=== PATIENT | female | born 1985 | race African-American/Black ===

== ENCOUNTER 2016-12-05 09:34 | Emergency (ER) | payer SELFPAY ==
--- NOTE | 2016-12-05 10:34 | ER Document Report ---
ED Oral Problem - General Chief Complaint: Sore Throat Stated Complaint: THROAT PAIN Notes: Patient is complaining of a sore throat since Friday. She feels that it swollen in the back of her throat, but she can swallow saliva without difficulty , except for pain. Has not had a fever. Has had a cough with some yellow sputum production. No vomiting and no diarrhea. Has not been exposed to anyone with strep. TRAVEL OUTSIDE OF THE [place] IN LAST 30 DAYS: No - Related Data Allergies/Adverse Reactions: No Known Allergies Allergy (Verified 12/05/16 09:39) Past Medical History - Social History Smoking Status: Current Every Day Smoker Chew tobacco use (# tins/day): No Frequency of alcohol use: None Drug Abuse: None Family History: Reviewed & Not Pertinent Patient has suicidal ideation: No Patient has homicidal ideation: No Pulmonary Medical History: Reports: Hx Bronchitis Past Surgical History: Reports: Hx Gynecologic Surgery - AB 2006 Pt had ectopic preg and had surgery and both fallopian tubes remov - Immunizations Hx Diphtheria, Pertussis, Tetanus Vaccination: No - >5 yrs Review of Systems - Review of Systems Notes: REVIEW OF SYSTEMS: CONSTITUTIONAL : Feels she has had a fever. EENT: See history of present illness. CARDIOVASCULAR: Denies chest pain. RESPIRATORY: Has productive cough, chest congestion, but no shortness of breath. GASTROINTESTINAL: Denies abdominal pain or nausea, vomiting, or diarrhea. GENITOURINARY: Denies difficulty or painful urinating, urinary frequency, blood in urine. MUSCULOSKELETAL: Denies back or neck pain. Denies joint pain or swelling. SKIN: Denies rash or skin lesions. NEUROLOGICAL: Denies LOC or altered mental status. Denies headache. Denies sensory loss or motor deficits. ALL OTHER SYSTEMS REVIEWED AND NEGATIVE. Physical Exam - Vital signs Vitals: Temp Pulse Resp BP Pulse Ox 98.1 F 84 18 126/82 H 99 12/05/16 09:41 12/05/16 09:41 12/05/16 09:41 12/05/16 09:41 12/05/16 09:41 Interpretation: Normal - Notes Notes: PHYSICAL EXAMINATION: GENERAL: Well-appearing, in no acute distress. Afebrile. Voice normal. HEAD: Atraumatic, normocephalic. ENT: oropharynx erythematous with enlargement of the tonsils bilaterally, left larger than right. No a shoe dates seen, however. Moist mucous membranes. No asymmetry of the peritonsillar spaces and soft palate and nothing to suggest a peritonsillar abscess. Tender adenopathy in the submandibular region bilaterally. NECK: Normal range of motion, supple. LUNGS: Breath sounds clear and equal bilaterally. HEART: Regular rate and rhythm without murmurs. ABDOMEN: Soft, nontender. No guarding or rebound. BACK: No tenderness throughout entire back. EXTREMITIES: Normal range of motion without pain. SKIN: Warm, dry, no rashes. Course - Vital Signs Vital signs: Temp Pulse Resp BP Pulse Ox 98.1 F 84 18 126/82 H 99 12/05/16 09:41 12/05/16 09:41 12/05/16 09:41 12/05/16 09:41 12/05/16 09:41 - Laboratory Laboratory results interpreted by me: Rapid strep test was negative. Discharge - Discharge Clinical Impression: Pharyngitis Qualifiers: Pharyngitis/tonsillitis etiology: unspecified etiology Qualified Code(s): J02.9 - Acute pharyngitis, unspecified Condition: Stable Disposition: HOME, SELF-CARE Additional Instructions: SORE THROAT: Sore throats may be caused by viruses, bacteria, or fungi. Most are due to a virus, and must get better on their own. Bacterial sore throats, particularly those due to "strep," need treatment with antibiotics. If an antibiotic is prescribed, be sure to take the medication for a full 10 days. Failure to take the antibiotic can result in complications such as rheumatic fever. Sometimes, an injection of antibiotics is given instead of pills or liquid. This single "shot" is equal in effectiveness to the oral medication. To relieve symptoms, take acetaminophen for pain. Sip clear liquids frequently, or eat popsicles or ice chips. Anesthetic sprays or lozenges may help. Make sure the air in the room is not too dry. Avoid using decongestants or antihistamines. Call the doctor if there is no improvement in two days, or if you have difficulty breathing, increasing throat pain, high fever, rash, or frequent vomiting. ORAL NARCOTIC MEDICATION: You have been given a prescription for pain control. This medication is a narcotic. It's best taken with food, as nausea can result if taken on an empty stomach. Don't operate machinery or drive within six hours of taking this medication. Do not combine this medicine with alcohol, or with any medication which can cause sedation (such as cold tablets or sleeping pills) unless you get permission from the physician. Narcotics tend to cause constipation. If possible, drink plenty of fluids and eat a diet high in fiber and fruits. PENICILLIN V K: You have been given a prescription for Penicillin VK. Your physician has determined that this is the best antibiotic for your condition. Pen VK can be taken with meals, however more of the antibiotic gets into the bloodstream if it's taken on an empty stomach. Penicillin usually has no side effects. However, allergy to penicillins is common. If you have had an allergic reaction to any drug of the penicillin family, you should never take any other penicillin. Notify your doctor at once if you develop hives, itching, swelling, faintness, or shortness of breath. FOLLOW-UP CARE: If you have been referred to a physician for follow-up care, call the physician s office for an appointment as you were instructed or within the next two days. If you experience worsening or a significant change in your symptoms, notify the physician immediately or return to the Emergency Department at any time for re-evaluation. Prescriptions: Oxycodone HCl/Acetaminophen [Percocet 5-325 mg Tablet] 1 - 2 tab PO Q4H PRN #10 tablet PRN Reason: Penicillin V Potassium [Penicillin Vk 500 mg Tablet] 500 mg PO TID #20 tablet Forms: Return to Work
[2016-12-05 10:54] VITALS: BP 128/87
== END 2016-12-05 10:50 | disposition home or self-care (01) ==
LOC: ER 09:34
DX: J02.9 Acute pharyngitis, unspecified (principal); R05 Cough; R09.89 Other specified symptoms and signs involving the circulatory and respiratory systems; R59.0 Localized enlarged lymph nodes; J35.1 Hypertrophy of tonsils; F17.200 Nicotine dependence, unspecified, uncomplicated
CPT/HCPCS: 87070; 87880; 99283

== ENCOUNTER 2018-03-14 09:03 | Emergency (ER) | payer SELFPAY ==
--- NOTE | 2018-03-14 11:28 | ER Document Report ---
ED Medical Screen (RME) - General Chief Complaint: Chest Pain Notes: 32-year-old female patient woke up this morning with pain in her chest. Hurts to move. Hurts to take a deep breath. Pain is rated as 5/5 on a numeric pain scale. No fever, chills, sweats. No significant shortness of breath. Her major symptoms. Never had this happen before. Has not taken anything for the pain. Recent surgeries. No recent long trips or travel. No prior history of DVT or PE. I have greeted and performed a rapid initial assessment of this patient. A comprehensive ED assessment and evaluation of the patient, analysis of test results and completion of the medical decision making process will be conducted by additional ED providers. TRAVEL OUTSIDE OF THE [place] IN LAST 30 DAYS: No - Related Data Allergies/Adverse Reactions: No Known Allergies Allergy (Verified 12/05/16 09:39) Past Medical History - General Information source: Patient - Social History Frequency of alcohol use: None Drug Abuse: None Lives with: Family - Past Medical History Cardiac Medical History: Denies: Hx Coronary Artery Disease, Hx Heart Attack, Hx Hypertension Pulmonary Medical History: Reports: Hx Bronchitis Denies: Hx Asthma, Hx COPD, Hx Pneumonia Neurological Medical History: Denies: Hx Cerebrovascular Accident, Hx Seizures Renal/ Medical History: Denies: Hx Peritoneal Dialysis Musculoskeltal Medical History: Denies Hx Arthritis Past Surgical History: Reports: Hx Gynecologic Surgery - AB 2006 Pt had ectopic preg and had surgery and both fallopian tubes remov, Hx Tubal Ligation - Immunizations Hx Diphtheria, Pertussis, Tetanus Vaccination: No - >5 yrs Review of Systems - Review of Systems Constitutional: No symptoms reported EENT: No symptoms reported Cardiovascular: Chest pain. denies: Palpitations, Heart racing, Orthopnea Respiratory: No symptoms reported Gastrointestinal: No symptoms reported Genitourinary: No symptoms reported Female Genitourinary: No symptoms reported Musculoskeletal: No symptoms reported Skin: No symptoms reported Hematologic/Lymphatic: No symptoms reported Neurological/Psychological: No symptoms reported Physical Exam - Vital signs Interpretation: Normal - General General appearance: Appears well, Alert - HEENT Head: Normocephalic, Atraumatic Eyes: Normal Pupils: PERRL - Respiratory Respiratory status: No respiratory distress Chest status: Nontender Breath sounds: Normal Chest palpation: Normal - Cardiovascular Rhythm: Regular Heart sounds: Normal auscultation Murmur: No - Abdominal Inspection: Normal Distension: No distension Bowel sounds: Normal Tenderness: Nontender Organomegaly: No organomegaly - Back Back: Normal, Nontender - Extremities General upper extremity: Normal inspection, Nontender, Normal color, Normal ROM , Normal temperature General lower extremity: Normal inspection, Nontender, Normal color, Normal ROM , Normal temperature, Normal weight bearing. No: Richelle's sign - Neurological Neuro grossly intact: Yes Cognition: Normal Orientation: AAOx4 [place] Coma Scale Eye Opening: Spontaneous [place] Coma Scale Verbal: Oriented [place] Coma Scale Motor: Obeys Commands [place] Coma Scale Total: 15 Speech: Normal Motor strength normal: LUE, RUE, LLE, RLE Sensory: Normal - Psychological Associated symptoms: Normal affect, Normal mood - Skin Skin Temperature: Warm Skin Moisture: Dry Skin Color: Normal Course - Re-evaluation Re-evalutation: 03/14/18 11:28 EKG reviewed reveals questionable diffuse ST segment elevations which could be consistent with pericarditis. Will get basic cardiac labs, chest x-ray and reassess. Shot of Toradol ordered at triage.
[2018-03-14] MEDS ORDERED: ASPIRIN 81 MG TABLET, CHEWABLE PO ONE (11:37)
[2018-03-14] MEDS ORDERED: KETOROLAC TROMETHAMINE 60 MG/2 ML SDV IM ONE (11:38)
[2018-03-14] MEDS ORDERED: IPRATROPIUM/ALBUTEROL 0.5-2.5 MG/3 ML AMPUL NEB ONE (11:38)
--- NOTE | 2018-03-14 11:42 | ER Document Report ---
ED Cardiac - General Chief Complaint: Chest Pain Time Seen by Provider: 03/14/18 11:27 Mode of Arrival: Ambulatory Information source: Patient Notes: Patient states that she got up around 3:00 this morning to go the bathroom and at that time she noticed that she was having some chest pain and left upper back pain. Patient states the pain did not wake her up. Patient denies any cough or cold symptoms. Patient states the pain is worse with deep inspiration and movement. Patient does report swimming yesterday she denies any nausea or vomiting. Patient denies any cardiac history or significant family history for heart disease. TRAVEL OUTSIDE OF THE [place] IN LAST 30 DAYS: No - HPI Patient complains to provider of: Chest pain Was the onset of pain: Gradual Chest pain location: Substernal, Back, Under breast Quality of pain: Pressure Pain level currently: 4 Cardiac risk factors: Smoker Associated symptoms: Back pain. denies: Abdominal pain, Anxiety, Headache, Lightheaded, Nausea/vomiting, Shortness of breath Exacerbated by: Coughing, Deep breaths Relieved by: Rest Similar symptoms previously: No Recently seen / treated by doctor: No - Related Data Allergies/Adverse Reactions: No Known Allergies Allergy (Verified 12/05/16 09:39) Home Medications: pt denies taking any home medications Past Medical History - General Information source: Patient - Social History Smoking Status: Current Every Day Smoker Smoking Education Provided: Yes Frequency of alcohol use: None Drug Abuse: None Occupation: [employer] Lives with: Family Family History: Reviewed & Not Pertinent Patient has suicidal ideation: No Patient has homicidal ideation: No - Medical History Medical History: Negative - Past Medical History Cardiac Medical History: Denies: Hx Coronary Artery Disease, Hx Heart Attack, Hx Hypertension Pulmonary Medical History: Reports: Hx Bronchitis Denies: Hx Asthma, Hx COPD, Hx Pneumonia Neurological Medical History: Denies: Hx Cerebrovascular Accident, Hx Seizures Renal/ Medical History: Denies: Hx Peritoneal Dialysis Musculoskeltal Medical History: Denies Hx Arthritis Past Surgical History: Reports: Hx Gynecologic Surgery - AB 2006 Pt had ectopic preg and had surgery and both fallopian tubes remov, Hx Tubal Ligation - Immunizations Hx Diphtheria, Pertussis, Tetanus Vaccination: No - >5 yrs Review of Systems - Review of Systems Constitutional: No symptoms reported. denies: Fever EENT: No symptoms reported Cardiovascular: Chest pain. denies: Dizziness, Lightheaded Respiratory: No symptoms reported. denies: Cough, Short of breath Gastrointestinal: No symptoms reported. denies: Abdominal pain, Nausea, Vomiting Genitourinary: No symptoms reported. denies: Dysuria Female Genitourinary: No symptoms reported Musculoskeletal: Back pain Skin: No symptoms reported Hematologic/Lymphatic: No symptoms reported Neurological/Psychological: No symptoms reported Physical Exam - Vital signs Vitals: Resp 29 H 03/14/18 11:24 - General General appearance: Alert, Anxious In distress: None - HEENT Head: Normocephalic, Atraumatic Eyes: Normal Conjunctiva: Normal Nasal: Normal Mouth/Lips: Normal Mucous membranes: Normal Pharynx: Normal Neck: Normal, Supple. No: Lymphadenopathy, Meningismus - Respiratory Respiratory status: No respiratory distress Chest status: Pain on movement, Pain with deep breathing Breath sounds: Normal Chest palpation: Tender - Anterior chest tenderness reproducible with palpation - Cardiovascular Rhythm: Regular Heart sounds: S1 appreciated, S2 appreciated Murmur: No - Abdominal Inspection: Normal Distension: No distension Bowel sounds: Normal Tenderness: Nontender Organomegaly: No organomegaly - Back Back: Tender - Left upper thoracic back tenderness with palpation. No: CVA tenderness, Vertebra tenderness - Extremities General upper extremity: Normal inspection, Nontender, Normal strength General lower extremity: Normal inspection, Nontender, Normal strength - Neurological Neuro grossly intact: Yes Cognition: Normal [place] Coma Scale Eye Opening: Spontaneous [place] Coma Scale Verbal: Oriented [place] Coma Scale Motor: Obeys Commands [place] Coma Scale Total: 15 - Psychological Associated symptoms: Normal affect, Normal mood - Skin Skin Temperature: Warm Skin Moisture: Dry Skin Color: Normal Course - Re-evaluation Re-evalutation: 03/14/18 12:59 Patient reports continued chest pain that is worse with movement. Patient states that she remains still that the pain is not severe. Consulted with Dr. Ramirez regarding patient presentation, reviewed diagnostic test results, EKG and chest x-ray results. Patient has not been tachycardic nor hypoxic. Patient with no family history of any heart disease. Heart score of 1. Patient PERC negative. The patient has atypical chest pain as the patient's chest pain is not suggestive of pulmonary embolus, cardiac ischemia, aortic dissection, or other serious etiology. Given the extremely low risk of these diagnoses for the test in evaluation for these possibilities does not appear to be indicated at this time. Patient has been instructed to return if the symptoms worsen or change in any way. - Vital Signs Vital signs: Temp Pulse Resp BP Pulse Ox 19 128/84 H 100 03/14/18 13:52 03/14/18 13:52 03/14/18 13:52 - Laboratory Result Diagrams: 03/14/18 10:10 03/14/18 10:10 Laboratory results interpreted by me: 03/14/18 10:10 Sodium 146.4 H Creatine Kinase 156 H Labs- Entire Visit 03/14/18 03/14/18 03/14/18 10:10 10:10 10:10 WBC 7.8 RBC 4.66 Hgb 13.2 Hct 40.2 MCV 86 MCH 28.3 MCHC 32.9 RDW 13.5 Plt Count 295 Seg Neutrophils % 59.7 Lymphocytes % 28.9 Monocytes % 8.8 Eosinophils % 2.0 Basophils % 0.6 Absolute Neutrophils 4.6 Absolute Lymphocytes 2.2 Absolute Monocytes 0.7 Absolute Eosinophils 0.2 Absolute Basophils 0.0 Sodium 146.4 H Potassium 4.7 Chloride 107 Carbon Dioxide 29 Anion Gap 10 BUN 18 Creatinine 0.71 Est GFR ( Amer) > 60 Est GFR (Non-Af Amer) > 60 Glucose 102 Calcium 9.7 Total Bilirubin 0.3 Direct Bilirubin 0.3 Neonat Total Bilirubin Not Reportable Neonat Direct Bilirubin Not Reportable Neonat Indirect Bili Not Reportable AST 26 ALT 26 Alkaline Phosphatase 92 Creatine Kinase 156 H CK-MB (CK-2) 1.71 Troponin I < 0.012 Total Protein 7.6 Albumin 4.2 Lipase 63.6 - Diagnostic Test Radiology reviewed: Reports reviewed Discharge - Discharge Clinical Impression: Chest pain Qualifiers: Chest pain type: unspecified Qualified Code(s): R07.9 - Chest pain, unspecified Condition: Stable Disposition: HOME, SELF-CARE Instructions: Chest Wall Pain ([facility]), Chest Pain of Unclear Cause ([facility]), Muscle Relaxers ([facility]) Additional Instructions: Return immediately for any new or worsening symptoms Followup with your primary care provider, call tomorrow to make a followup appointment 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
--- NOTE | 2018-03-14 11:43 | RADIOLOGY REPORT (SQ) ---
EXAM DESCRIPTION: CHEST 2 VIEWS COMPLETED DATE/TIME: 03/14/2018 11:21 am REASON FOR STUDY: CHEST PAIN COMPARISON: None. EXAM PARAMETERS: NUMBER OF VIEWS: two views TECHNIQUE: Digital Frontal and Lateral radiographic views of the chest acquired. RADIATION DOSE: NA LIMITATIONS: none FINDINGS: LUNGS AND PLEURA: No opacities, masses or pneumothorax. No pleural effusion. MEDIASTINUM AND HILAR STRUCTURES: No masses or contour abnormalities. HEART AND VASCULAR STRUCTURES: Heart normal size. No evidence for failure. BONES: No acute findings. HARDWARE: None in the chest. OTHER: No other significant finding. IMPRESSION: NO ACUTE RADIOGRAPHIC FINDING IN THE CHEST. TECHNICAL DOCUMENTATION: JOB ID: [id number] [employer]- All Rights Reserved Reading location - IP/workstation name: [email or web address]
[2018-03-14 11:58] LABS: ALANINE AMINOTRANSFERASE 26 U/L (9-52); ALBUMIN 4.2 g/dL (3.5-5.0); ALKALINE PHOSPHATASE 92 U/L (38-126); ANION GAP 10 (5-19); ASPARTATE AMINO TRANSFERASE 26 U/L (14-36); BILIRUBIN,DIRECT 0.3 mg/dL (0.0-0.4); BILIRUBIN,TOTAL 0.3 mg/dL (0.2-1.3); BLOOD UREA NITROGEN 18 mg/dL (7-20); CALCIUM 9.7 mg/dL (8.4-10.2); CARBON DIOXIDE 29 mmol/L (22-30); CHLORIDE 107 mmol/L (98-107); CREATINE KINASE 156 U/L (30-135); GLUCOSE 102 mg/dL (75-110); POTASSIUM 4.7 mmol/L (3.6-5.0); SODIUM 146.4 mmol/L (137-145); TOTAL PROTEIN 7.6 g/dL (6.3-8.2)
[2018-03-14 11:59] LABS: CREATINE KINASE MB 1.71 ng/mL (<4.55); TROPONIN I < 0.012 ng/mL
[2018-03-14 12:03] LABS: ABSOLUTE EOSINOPHILS # (AUTO) 0.2 10^3/uL (0.0-0.6); ABSOLUTE LYMPHOCYTES (AUTO) 2.2 10^3/uL (0.5-4.7); ABSOLUTE MONOCYTES (AUTO) 0.7 10^3/uL (0.1-1.4); ABSOLUTE NEUT (AUTO) 4.6 10^3/uL (1.7-8.2); BASOPHILS % (AUTO) 0.6 % (0-2); HEMATOCRIT 40.2 % (36.0-47.0); HEMOGLOBIN 13.2 g/dL (12.0-15.5); LYMPHOCYTES % (AUTO) 28.9 % (13-45); MEAN CORPUSCULAR HEMOGLOBIN 28.3 pg (27.0-33.4); MEAN CORPUSCULAR HGB CONC 32.9 g/dL (32.0-36.0); MEAN CORPUSCULAR VOLUME 86 fl (80-97); MONOCYTES % (AUTO) 8.8 % (3-13); PLATELET COUNT 295 10^3/uL (150-450); RED BLOOD COUNT 4.66 10^6/uL (3.72-5.28); RED CELL DISTRIBUTION WIDTH 13.5 % (11.5-14.0); SEGMENTED NEUTROPHILS % (AUTO) 59.7 % (42-78); TOTAL CELLS COUNTED % (AUTO) 100 %; WHITE BLOOD COUNT 7.8 10^3/uL (4.0-10.5)
[2018-03-14 12:06] LABS: LIPASE 63.6 U/L (23-300)
[2018-03-14] MEDS ORDERED: OXYCODONE-ACETAMINOPHEN 5-325 MG TABLET PO ONE (12:59)
[2018-03-14 14:11] VITALS: BP 128/84
--- NOTE | 2018-03-14 16:47 | EKG REPORT ---
SEVERITY:- ABNORMAL ECG - SINUS RHYTHM FIRST DEGREE AV BLOCK : Confirmed by: Tony Willams MD 14-Mar-2018 16:46:10
== END 2018-03-14 14:10 | disposition home or self-care (01) ==
LOC: ER 09:03
DX: R07.89 Other chest pain (principal); R07.1 Chest pain on breathing; M54.89 Other dorsalgia; F17.200 Nicotine dependence, unspecified, uncomplicated
CPT/HCPCS: 93005; 94640; 99285; 96372; 36415; 82553; 82550; 83690; 85025; 80053; 84484; 71046; 93010; J1885; J7620

== ENCOUNTER 2018-10-01 09:04 | Emergency (ER) | payer SELFPAY ==
[2018-10-01 09:31] VITALS: BP 132/75
[2018-10-01] MEDS ORDERED: LORATADINE 10 MG TABLET PO ONE (09:31)
[2018-10-01] MEDS ORDERED: PSEUDOEPHEDRINE HCL 30 MG TABLET PO ONE (09:31)
[2018-10-01] MEDS ORDERED: ACETAMINOPHEN 325 MG TABLET PO ONE (09:31)
[2018-10-01] MEDS ORDERED: GUAIFENESIN 600 MG TABLET.SA PO ONE (09:31)
--- NOTE | 2018-10-01 09:38 | ER Document Report ---
ED ENT - General Chief Complaint: Cold Symptoms Stated Complaint: SORE THROAT/COUGH/CHEST DISCOMFORT Time Seen by Provider: 10/01/18 09:21 Mode of Arrival: Ambulatory Information source: Patient Notes: 33-year-old female presents to ED for cough cold congestion stuffy nose sore throat but no fever. Patient is alert and oriented respirations regular and unlabored speaking in full sentences walks with a even steady gait. Her temperature was 97.7 sat was 97% pulse was 88 blood pressure was 132/75. I have treated her with cough and cold medicines and will discharge her home with instructions for cough and cold. TRAVEL OUTSIDE OF THE [place] IN LAST 30 DAYS: No - HPI Patient complains to provider of: Nose problem Onset: Yesterday Onset/Duration: Gradual Quality of pain: Achy Severity: Moderate Pain Level: 3 Context: Recent Illness Associated symptoms: Congestion, Cough, Runny nose, Sinus pain, Sinus drainage, Sore throat Similar symptoms previously: Yes Recently seen / treated by doctor: No - Related Data Allergies/Adverse Reactions: No Known Allergies Allergy (Verified 10/01/18 09:24) Past Medical History - General Information source: Patient - Social History Smoking Status: Current Every Day Smoker Cigarette use (# per day): Yes - 5 cigarettes a day Chew tobacco use (# tins/day): No Smoking Education Provided: Yes - 4 minutes Frequency of alcohol use: Social Drug Abuse: None Occupation: environmental services specialist Lives with: Spouse/Significant other Family History: Reviewed & Not Pertinent Patient has suicidal ideation: No Patient has homicidal ideation: No - Past Medical History Cardiac Medical History: Reports: None Pulmonary Medical History: Reports: Hx Bronchitis EENT Medical History: Reports: None Neurological Medical History: Reports: None Endocrine Medical History: Reports: None Renal/ Medical History: Reports: Hx Ectopic Malignancy Medical History: Reports: None GI Medical History: Reports: None Musculoskeletal Medical History: Reports None Skin Medical History: Reports None Psychiatric Medical History: Reports: None Traumatic Medical History: Reports: None Infectious Medical History: Reports: None Past Surgical History: Reports: Hx Gynecologic Surgery - AB 2006 Pt had ectopic preg and had surgery and both fallopian tubes remov, Hx Tubal Ligation - Immunizations Hx Diphtheria, Pertussis, Tetanus Vaccination: No - >5 yrs Review of Systems - Review of Systems Constitutional: Recent illness. denies: Chills, Fever EENT: Nose congestion, Nose discharge, Sinus pressure, Sinus discharge, Throat pain Cardiovascular: No symptoms reported Respiratory: Cough, Sputum - Same color is within her nose Gastrointestinal: No symptoms reported Genitourinary: No symptoms reported Female Genitourinary: No symptoms reported Musculoskeletal: No symptoms reported Skin: No symptoms reported Hematologic/Lymphatic: No symptoms reported Neurological/Psychological: No symptoms reported -: Yes All other systems reviewed and negative Physical Exam - Vital signs Vitals: Temp Pulse Resp BP Pulse Ox 98.1 F 95 24 H 139/94 H 96 10/01/18 09:13 10/01/18 09:13 10/01/18 09:13 10/01/18 09:13 10/01/18 09:13 Interpretation: Normal - General General appearance: Appears well, Alert - HEENT Head: Normocephalic, Atraumatic Eyes: Normal Pupils: PERRL Ears: Normal External canal: Normal Tympanic membrane: Normal Sinus: Normal Nasal: Purulent discharge, Swelling Mouth/Lips: Normal Mucous membranes: Normal Pharynx: Post nasal drainage - Respiratory Respiratory status: No respiratory distress Chest status: Nontender Breath sounds: Nonproductive cough Chest palpation: Normal - Cardiovascular Rhythm: Regular Heart sounds: Normal auscultation Murmur: No - Abdominal Inspection: Normal Distension: No distension Bowel sounds: Normal Tenderness: Nontender Organomegaly: No organomegaly - Back Back: Normal, Nontender - Extremities General upper extremity: Normal inspection, Nontender, Normal color, Normal ROM, Normal temperature General lower extremity: Normal inspection, Nontender, Normal color, Normal ROM, Normal temperature, Normal weight bearing. No: Richelle's sign - Neurological Neuro grossly intact: Yes Cognition: Normal Orientation: AAOx4 Kofi Coma Scale Eye Opening: Spontaneous Pioneer Coma Scale Verbal: Oriented Kofi Coma Scale Motor: Obeys Commands Kofi Coma Scale Total: 15 Speech: Normal Motor strength normal: LUE, RUE, LLE, RLE Sensory: Normal - Psychological Associated symptoms: Normal affect, Normal mood - Skin Skin Temperature: Warm Skin Moisture: Dry Skin Color: Normal Course - Re-evaluation Re-evalutation: 10/01/18 09:39 Patient was treated with Claritin, Sudafed, Mucinex, Tylenol and given instructions for upper respiratory infection. She has been sick less than 24 hours. After performing a Medical Screening Examination, I estimate there is LOW risk for ACUTE CORONARY SYNDROME, RESPIRATORY FAILURE, SEPSIS OR MENINGITIS, thus I consider the discharge disposition reasonable. I have reevaluated this patient multiple times and no significant life threatening changes are noted. The patient and I have discussed the diagnosis and risks, and we agree with discharging home with close follow-up. We also discussed returning to the Emergency Department immediately if new or worsening symptoms occur. We have discussed the symptoms which are most concerning (e.g., changing or worsening pain, trouble swallowing or breathing, neck stiffness, fever) that necessitate immediate return. - Vital Signs Vital signs: Temp Pulse Resp BP Pulse Ox 97.7 F 88 16 132/75 H 97 10/01/18 09:31 10/01/18 09:31 10/01/18 09:31 10/01/18 09:31 10/01/18 09:31 Discharge - Discharge Clinical Impression: Viral sore throat URI (upper respiratory infection) Qualifiers: URI type: unspecified URI Qualified Code(s): J06.9 - Acute upper respiratory infection, unspecified Condition: Stable Disposition: HOME, SELF-CARE Instructions: Family Physicians / Practices Additional Instructions: SORE THROAT: Sore throats may be caused by viruses, bacteria, or fungi. Most are due to a virus, and must get better on their own. Bacterial sore throats, particularly those due to "strep," need treatment with antibiotics. If an antibiotic is prescribed, be sure to take the medication for a full 10 days. Failure to take the antibiotic can result in complications such as rheumatic fever. Sometimes, an injection of antibiotics is given instead of pills or liquid. This single "shot" is equal in effectiveness to the oral medication. To relieve symptoms, take acetaminophen for pain. Sip clear liquids frequently, or eat popsicles or ice chips. Anesthetic sprays or lozenges may help. Make sure the air in the room is not too dry. Avoid using decongestants or antihistamines. Call the doctor if there is no improvement in two days, or if you have difficulty breathing, increasing throat pain, high fever, rash, or frequent vomiting. UPPER RESPIRATORY ILLNESS: You have a viral infection of the respiratory passages -- a "cold." This common infection causes nasal congestion, drainage, and often sore throat and cough. It is highly contagious. The disease usually lasts about 10 to 14 days. There is no "cure" for the viral infection -- it must run its course. If there is a complication, such as bacterial infection in the nose, sinuses, middle ear, or bronchial tubes, antibiotics may be required. The antibiotics won't affect the virus. Drink plenty of fluids. A humidifier may help. An expectorant medication or decongestant may make you more comfortable. Use acetaminophen or ibuprofen for fever or aches. See the doctor if fever persists over two days, if there is any significant worsening of your symptoms, or if you simply fail to improve as expected. DECONGESTANT MEDICATION: A decongestant medicine has been suggested. Often this medicine is combined in the same tablet with an antihistamine or expectorant. This type of medicine is helpful in treating a bad cold or sinus condition, as well as in treatment of the nasal congestion of hay fever. It is not of much benefit for lung infections. Decongestant medicines are related to stimulants. They can cause an increase in blood pressure and heart rate. Persons with heart disease and high blood pressure should not take decongestants without discussing this with the physician. If you develop palpitations, chest pain, headache, or tremors, stop the medicine and consult your physician. COUGH-SUPPRESSANT & EXPECTORANT MEDICATION: You are to use a cough medication as needed for relief of symptoms. This medicine is a combination of an expectorant (to make the mucous thinner and more easily "coughed up") and a cough suppressant (to reduce the frequency of coughing). The cough-suppressant medicine is related to narcotics. You may experience mild nausea and sleepiness. Some patients who are very sensitive to narcotics may have stomach pain from this medicine. Taking the medicine with food reduces these side effects. Do not drive or work with machinery until you know how this medicine affects you. The expectorant should have no side effects. Iodine-containing expectorants (such as organidin) should not be taken by persons with active thyroid disease unless approved by your doctor. Call the doctor if you develop shortness of breath, hives, rash, itching, lightheadedness, or severe nausea and vomiting. USE OF ACETAMINOPHEN (Tylenol): Acetaminophen may be taken for pain relief or fever control. It's much safer than aspirin, offering a wider range of "safe" dosages. It is safe during . Some brand names are Tylenol, Panadol, Datril, Anacin 3, Tempra, and Liquiprin. Acetaminophen can be repeated every four hours. The following are maximum recommended dosages: >89 pounds or adults 650 mg to 900 mg Acetaminophen can be repeated every four hours. Maximum dose not to exceed 4000 mg a day. SMOKING: If you smoke, you should stop smoking. The tar and chemicals in cigarette smoke are harmful. Smoking has been shown to cause: emphysema chronic bronchitis lung cancer mouth and throat cancer stomach and pancreas cancer premature aging defects In addition, smoking increases ear and lung infections in children of smokers. You have been treated with Claritin 10 mg Sudafed 30 mg, Mucinex 600 mg, and Tylenol 650 mg. These are all syei-hcl-[id number] medications and you can get them at the pharmacy. You will have to ask behind the counter for the Sudafed. As for the little red tablets. You can also use Flonase nasal spray. This is also [id number]. Use it according the box instructions. For your sore throat you can use Chloraseptic spray this is [id number]. He can also use salt and soda solutions. I will give the instructions from a consult soda solution. Salt and soda solution 1 quart of water 1 tablespoon of salt 1 teaspoon of baking soda Mixed 3 ingredients together and boil for 1 minute Placed in a covered quart jar Use 1/2 ounce of cold solution to gargle 3 times a day FOLLOW-UP CARE: If you have been referred to a physician for follow-up care, call the physicians office for an appointment as you were instructed or within the next two days. If you experience worsening or a significant change in your symptoms, notify the physician immediately or return to the Emergency Department at any time for re-evaluation. Forms: Elevated Blood Pressure, Smoking Cessation Education, Return to Work
== END 2018-10-01 09:46 | disposition home or self-care (01) ==
LOC: ER 09:04
DX: J06.9 Acute upper respiratory infection, unspecified (principal); J02.9 Acute pharyngitis, unspecified; F17.210 Nicotine dependence, cigarettes, uncomplicated; Z98.51 Tubal ligation status
CPT/HCPCS: 99283; 99406

== ENCOUNTER 2019-06-06 18:13 | Emergency (ER) | payer SELFPAY ==
[2019-06-06 18:18] VITALS: BP 134/77
[2019-06-06] MEDS ORDERED: DEXAMETHASONE SOD PHOSPHATE INJ 4 MG/1 ML VIAL IM ONE (18:35)
--- NOTE | 2019-06-06 18:40 | ER Document Report ---
HPI - HPI Patient complains to provider of: sore throat body aches Time Seen by Provider: 06/06/19 18:29 Onset: Yesterday Onset/Duration: Persistent Quality of pain: Achy Severity: Severe Pain Level: 4 Context: This 33-year-old female presents emergency department with complaints of sore throat body aches since yesterday. Denies fever vomiting diarrhea. Reports she has strep a lot. Works at [employer] is unsure of strep exposure recently. Patient is drinking p.o. fluids without problems. Associated Symptoms: Body/muscle aches. denies: Fever Exacerbated by: Denies Relieved by: Denies Similar symptoms previously: Yes Recently seen / treated by doctor: No - REPRODUCTIVE Reproductive: DENIES: : Past Medical History - General Information source: Patient Last Menstrual Period: hyst - Social History Smoking Status: Unknown if Ever Smoked Cigarette use (# per day): No Frequency of alcohol use: None Drug Abuse: None Occupation: [place] Family History: Reviewed & Not Pertinent Patient has suicidal ideation: No Patient has homicidal ideation: No - Past Medical History Cardiac Medical History: Denies: Hx Heart Attack, Hx Hypertension Pulmonary Medical History: Reports: Hx Bronchitis Denies: Hx Asthma, Hx COPD, Hx Pneumonia Neurological Medical History: Denies: Hx Seizures Renal/ Medical History: Reports: Hx Ectopic . Denies: Hx Peritoneal Dialysis Musculoskeletal Medical History: Denies Hx Arthritis Past Surgical History: Reports: Hx Gynecologic Surgery - AB 2006 Pt had ectopic preg and had surgery and both fallopian tubes remov, Hx Tubal Ligation - Immunizations Hx Diphtheria, Pertussis, Tetanus Vaccination: No - >5 yrs Vertical Provider Document - CONSTITUTIONAL Agree With Documented VS: Yes Exam Limitations: No Limitations General Appearance: WD/WN, No Apparent Distress - INFECTION CONTROL TRAVEL OUTSIDE OF THE [place] IN LAST 30 DAYS: No - HEENT HEENT: Atraumatic, Normocephalic, Pharyngeal Erythema - tonsillar hypertrophy, good airway, drinking po fluids without problems. negative: Conjuctival Injection, Pharyngeal Exudate, Tympanic Membrane Red - NECK Neck: Normal Inspection, Supple - RESPIRATORY Respiratory: Breath Sounds Normal, No Respiratory Distress - CARDIOVASCULAR Cardiovascular: Regular Rate, Regular Rhythm - GI/ABDOMEN Gastrointestinal: Abdomen Soft, Abdomen Non-Tender - MUSCULOSKELETAL/EXTREMETIES Musculoskeletal/Extremeties: FARHAD THOMPSON - NEURO Level of Consciousness: Awake, Alert, Appropriate Motor/Sensory: No Motor Deficit - DERM Integumentary: Warm, Dry, No Rash Course - Re-evaluation Re-evalutation: 06/06/19 18:40 Pt with a history of strep presents to the emergency department with complaints of sore throat since yesterday. Also complains of body aches. Denies fever vomiting diarrhea. Eating and drinking without problems. Good airway. Strep test was negative. Patient was instructed on this. Instructed on warm salt gustavo er gargles push fluids. Also instructed to be contacted should the throat culture come back positive. She verbalized understand all instructions. Dictation of this chart was performed using voice recognition software; therefore, there may be some unintended grammatical errors. - Vital Signs Vital signs: Temp Pulse Resp BP Pulse Ox 99.1 F 91 18 134/77 H 97 06/06/19 18:17 06/06/19 18:17 06/06/19 18:17 06/06/19 18:17 06/06/19 18:17 Discharge - Discharge Clinical Impression: Sore throat, Body aches Condition: Stable Disposition: HOME, SELF-CARE Instructions: Sore Throat ([facility]), Steroid Medication Injection Additional Instructions: *You have been evaluated for a sore throat, body aches *Your strep test was negative. A throat culture is pending. You will be contacted week should the throat culture be positive and you need antibiotics. *Monitor your temperature, take ibuprofen as indicated. *Warm salt water gargles and throat lozenges for comfort *Do not let anyone drink/eat after you *Good hand washing *Follow-up with a primary care provider within 1 week for recheck *Return to ED for worsening condition change, needs, difficulty swallowing inc reased pain fever Monitor your blood pressure. Your blood pressure was elevated today. This may be because you were anxious, in pain or because you need medication. It is important to follow up with your primary care provider for full evaluation. Forms: Elevated Blood Pressure, Return to Work
== END 2019-06-06 19:20 | disposition home or self-care (01) ==
LOC: ER 18:13
DX: J02.9 Acute pharyngitis, unspecified (principal); M79.10 Myalgia, unspecified site
CPT/HCPCS: 87070; 87880; 87077; J1100; 96372; 99283

== ENCOUNTER 2019-10-01 22:31 | Emergency (ER) | payer OTHER ==
[2019-10-01] MEDS ORDERED: PSEUDOEPHEDRINE HCL 30 MG TABLET PO ONE (23:11)
[2019-10-01] MEDS ORDERED: ACETAMINOPHEN 325 MG TABLET PO ONE (23:11)
--- NOTE | 2019-10-01 23:12 | ER Document Report ---
ED Medical Screen (RME) - General Chief Complaint: Sore Throat Stated Complaint: SORE THROAT,WEAKNESS Time Seen by Provider: 10/01/19 23:08 Notes: Patient presents complaining of sore throat congestion and body aches that started today. Patient denies any fever. I have greeted and performed a rapid initial assessment of this patient. A comprehensive ED assessment and evaluation of the patient, analysis of test results and completion of the medical decision making process will be conducted by additional ED providers. TRAVEL OUTSIDE OF THE [place] IN LAST 30 DAYS: No - Related Data Allergies/Adverse Reactions: No Known Allergies Allergy (Verified 10/01/19 23:09) Past Medical History - Past Medical History Cardiac Medical History: Denies: Hx Heart Attack, Hx Hypertension Pulmonary Medical History: Reports: Hx Bronchitis Denies: Hx Asthma, Hx COPD, Hx Pneumonia Neurological Medical History: Denies: Hx Seizures Renal/ Medical History: Reports: Hx Ectopic . Denies: Hx Peritoneal Dialysis Musculoskeltal Medical History: Denies Hx Arthritis Past Surgical History: Reports: Hx Gynecologic Surgery - AB 2006 Pt had ectopic preg and had surgery and both fallopian tubes remov, Hx Tubal Ligation - Immunizations Hx Diphtheria, Pertussis, Tetanus Vaccination: No - >5 yrs Physical Exam - Vital signs Vitals: Temp Pulse Resp BP Pulse Ox 98.1 F 92 16 123/57 L 99 10/01/19 22:36 10/01/19 22:36 10/01/19 22:36 10/01/19 22:36 10/01/19 22:36 - General General appearance: Alert - HEENT Nasal: Clear rhinorrhea Pharynx: Erythema. No: Exudate, Tonsillar hypertrophy Course - Vital Signs Vital signs: Temp Pulse Resp BP Pulse Ox 98.1 F 92 16 123/57 L 99 10/01/19 22:36 10/01/19 22:36 10/01/19 22:36 10/01/19 22:36 10/01/19 22:36
[2019-10-02] MEDS ORDERED: ACETAMINOPHEN 325 MG TABLET PO ONE (02:30)
[2019-10-02] MEDS ORDERED: PSEUDOEPHEDRINE HCL 30 MG TABLET PO ONE (02:30)
[2019-10-02] MEDS ORDERED: IBUPROFEN 800 MG TABLET PO ONE (02:42)
[2019-10-02] MEDS ORDERED: DEXAMETHASONE SOD PHOS INJ 10 MG/1 ML VIAL IM ONE (02:43)
--- NOTE | 2019-10-02 02:44 | ER Document Report ---
HPI - HPI Time Seen by Provider: 10/01/19 23:08 Pain Level: 5 Context: Patient is a 34-year-old female that comes emergency department for chief complaint of body aches, chills, sore throat, and congestion that started earlier today. She denies cough, vomiting, difficulty breathing, inability to swallow, neck stiffness, abdominal pain. 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 She denies or any daily medications. She denies any other complaints - REPRODUCTIVE Reproductive: DENIES: : Past Medical History - General Information source: Patient - Social History Smoking Status: Current Every Day Smoker Frequency of alcohol use: None Drug Abuse: None Lives with: Family Family History: Reviewed & Not Pertinent Patient has suicidal ideation: No Patient has homicidal ideation: No - Past Medical History Cardiac Medical History: Denies: Hx Heart Attack, Hx Hypertension Pulmonary Medical History: Reports: Hx Bronchitis Denies: Hx Asthma, Hx COPD, Hx Pneumonia Neurological Medical History: Denies: Hx Seizures Renal/ Medical History: Reports: Hx Ectopic . Denies: Hx Peritoneal Dialysis Musculoskeletal Medical History: Denies Hx Arthritis Past Surgical History: Reports: Hx Gynecologic Surgery - AB 2006 Pt had ectopic preg and had surgery and both fallopian tubes remov, Hx Hysterectomy, Hx Tubal Ligation - Immunizations Hx Diphtheria, Pertussis, Tetanus Vaccination: No - >5 yrs Vertical Provider Document - CONSTITUTIONAL General Appearance: WD/WN, No Apparent Distress - INFECTION CONTROL TRAVEL OUTSIDE OF THE [place] IN LAST 30 DAYS: No - HEENT HEENT: Atraumatic, Normocephalic. negative: Normal ENT Exam - Mild sinus congestion without tenderness of the sinuses, unremarkable ears, mild erythema and tonsillar hypertrophy but this is equal and the uvula is normal. No evidence of abscess. Unremarkable oropharyngeal exam and ENT exam otherwise. - NECK Neck: Normal Inspection - RESPIRATORY Respiratory: Breath Sounds Normal, No Respiratory Distress - CARDIOVASCULAR Cardiovascular: Regular Rate, Regular Rhythm - GI/ABDOMEN Gastrointestinal: Abdomen Soft, Abdomen Non-Tender - BACK Back: Normal Inspection - MUSCULOSKELETAL/EXTREMETIES Musculoskeletal/Extremeties: MAEW, FROM, Non-Tender - NEURO Level of Consciousness: Awake, Alert, Appropriate Motor/Sensory: No Motor Deficit, No Sensory Deficit - DERM Integumentary: Warm, Dry, No Rash Course - Re-evaluation Re-evalutation: Exam consistent with a viral illness, patient is well-appearing, clear lungs, unremarkable ENT exam, negative strep. Provided with dexamethasone after discussion of options, discussed follow-up, expectations, return precautions. Patient states appreciation and agreement. Stable at time of discharge. - Vital Signs Vital signs: Temp Pulse Resp BP Pulse Ox 99.2 F 102 H 20 150/92 H 100 10/02/19 02:27 10/02/19 02:27 10/02/19 02:27 10/02/19 02:27 10/02/19 02:27 Discharge - Discharge Clinical Impression: Sinus congestion, Body aches Pharyngitis Qualifiers: Pharyngitis/tonsillitis etiology: unspecified etiology Qualified Code(s): J02.9 - Acute pharyngitis, unspecified Condition: Stable Disposition: HOME, SELF-CARE Additional Instructions: Your strep test is negative. Your overall evaluation is most consistent with a developing viral illness. You have been treated for the sore throat and swollen tonsils with Decadron, this should last in your system for several days. You will be contacted if your throat culture grows out anything concerning. Take ibuprofen and Tylenol for pain and body aches along with chills. You can take [id number] decongestants and antihistamines and well. Stay hydrated. Return if you worsen including difficulty breathing or swallowing, vomiting, or any other concerning or worsening symptoms. Forms: Return to Work
[2019-10-02 03:32] VITALS: BP 131/82
== END 2019-10-02 03:34 | disposition home or self-care (01) ==
LOC: ER 22:31
DX: J02.9 Acute pharyngitis, unspecified (principal); R09.81 Nasal congestion; M79.10 Myalgia, unspecified site; F17.200 Nicotine dependence, unspecified, uncomplicated; I10 Essential (primary) hypertension
CPT/HCPCS: 99283; 96372; 87070; 87880; 87077; J1100

== ENCOUNTER 2019-10-03 15:19 | Emergency (ER) | payer OTHER ==
[2019-10-03] MEDS ORDERED: NORMAL SALINE 1000 ML 1,000 ML IV ONE (16:20)
[2019-10-03] MEDS ORDERED: DEXAMETHASONE SOD PHOS INJ 10 MG/1 ML VIAL IV ONE ×2 (16:20→18:23)
[2019-10-03] MEDS ORDERED: KETOROLAC TROMETHAMINE 60 MG/2 ML SDV IM ONE (16:20)
--- NOTE | 2019-10-03 16:23 | ER Document Report ---
ED Medical Screen (RME) - General Chief Complaint: Sore Throat Stated Complaint: SORE THROAT Time Seen by Provider: 10/03/19 16:14 Mode of Arrival: Ambulatory Information source: Patient Notes: Otherwise healthy 34-year-old female presents emergency department with chief complaint of sore throat and difficulty swallowing. Patient reports she was seen here few days ago, she states they have her a shot of Decadron but told her she had a negative strep test. She states since then the pain has gotten worse and her ability to swallow has also worsened. She denies any fevers. She is swallowing her own secretions well in triage. She does have bilateral tonsillar swelling left slightly greater than right but uvula is midline and there is no evidence of obvious tonsillar abscess. At this point in time I will obtain some basic labs, give the patient some IV hydration, IV Decadron and IV Toradol to see if we can make her feel a little better. I have greeted and performed a rapid initial assessment of this patient. A comprehensive ED assessment and evaluation of the patient, analysis of test results and completion of the medical decision making process will be conducted by additional ED providers. I have specifically instructed the patient or family members with the patient to immediately return to any nursing staff should anything change in the patient's condition or with their chief complaint. TRAVEL OUTSIDE OF THE [place] IN LAST 30 DAYS: No - Related Data Allergies/Adverse Reactions: No Known Allergies Allergy (Verified 10/03/19 16:14) Past Medical History - Social History Chew tobacco use (# tins/day): No Frequency of alcohol use: Social Drug Abuse: None - Past Medical History Cardiac Medical History: Denies: Hx Heart Attack, Hx Hypertension Pulmonary Medical History: Reports: Hx Bronchitis Denies: Hx Asthma, Hx COPD, Hx Pneumonia Neurological Medical History: Denies: Hx Seizures Renal/ Medical History: Reports: Hx Ectopic . Denies: Hx Peritoneal Dialysis Musculoskeltal Medical History: Denies Hx Arthritis Past Surgical History: Reports: Hx Gynecologic Surgery - AB 2006 Pt had ectopic preg and had surgery and both fallopian tubes remov, Hx Hysterectomy, Hx Tubal Ligation - Immunizations Hx Diphtheria, Pertussis, Tetanus Vaccination: No - >5 yrs Physical Exam - Vital signs Vitals: Temp Pulse Resp BP Pulse Ox 98.0 F 92 16 133/72 H 97 10/03/19 16:09 10/03/19 16:09 10/03/19 16:09 10/03/19 16:09 10/03/19 16:09 Course - Vital Signs Vital signs: Temp Pulse Resp BP Pulse Ox 98.0 F 92 16 133/72 H 97 10/03/19 16:09 10/03/19 16:09 10/03/19 16:09 10/03/19 16:09 10/03/19 16:09
[2019-10-03 16:44] LABS: ABSOLUTE MONOCYTES (AUTO) 1.3 10^3/uL (0.1-1.4); ABSOLUTE NEUT (AUTO) 9.2 10^3/uL (1.7-8.2); BASOPHILS % (AUTO) 0.2 % (0-2); EOSINOPHILS % (AUTO) 0.3 % (0-6); HEMATOCRIT 35.6 % (36.0-47.0); HEMOGLOBIN 11.8 g/dL (12.0-15.5); LYMPHOCYTES % (AUTO) 21.8 % (13-45); MEAN CORPUSCULAR HEMOGLOBIN 28.4 pg (27.0-33.4); MEAN CORPUSCULAR VOLUME 86 fl (80-97); MONOCYTES % (AUTO) 9.4 % (3-13); PLATELET COUNT 259 10^3/uL (150-450); RED BLOOD COUNT 4.13 10^6/uL (3.72-5.28); RED CELL DISTRIBUTION WIDTH 13.2 % (11.5-14.0); SEGMENTED NEUTROPHILS % (AUTO) 68.3 % (42-78); TOTAL CELLS COUNTED % (AUTO) 100 %; WHITE BLOOD COUNT 13.5 10^3/uL (4.0-10.5)
[2019-10-03 17:00] LABS: ALBUMIN 3.8 g/dL (3.5-5.0); ALKALINE PHOSPHATASE 83 U/L (38-126); ANION GAP 6 (5-19); ASPARTATE AMINO TRANSFERASE 22 U/L (14-36); BILIRUBIN,DIRECT 0.2 mg/dL (0.0-0.4); BILIRUBIN,TOTAL 0.2 mg/dL (0.2-1.3); BLOOD UREA NITROGEN 10 mg/dL (7-20); CALCIUM 8.9 mg/dL (8.4-10.2); CARBON DIOXIDE 27 mmol/L (22-30); CHLORIDE 109 mmol/L (98-107); GLUCOSE 100 mg/dL (75-110); POTASSIUM 3.5 mmol/L (3.6-5.0); TOTAL PROTEIN 7.3 g/dL (6.3-8.2)
[2019-10-03] MEDS ORDERED: KETOROLAC TROMETHAMINE INJ/PF 30 MG/1 ML SDV IV ONE (18:17)
--- NOTE | 2019-10-03 18:21 | ER Document Report ---
ED ENT - General Mode of Arrival: Ambulatory TRAVEL OUTSIDE OF THE [place] IN LAST 30 DAYS: No <DEMETRIUS SINGLETON - Last Filed: 10/03/19 19:47> <GAYLE BROWN - Last Filed: 10/03/19 22:32> - General Chief Complaint: Sore Throat Stated Complaint: SORE THROAT Time Seen by Provider: 10/03/19 16:14 Notes: Patient is a 34-year-old female who presents to the emergency department with a chief complaint of sore throat. Patient reports she developed a sore throat a bout 2 days ago. She states she was seen in the emergency department and was told that her strep test was negative. Patient reports she was given a dose of Decadron and sent home. Patient reports since then she has had increasing difficulty swallowing. Patient reports the difficulty swallowing is due to the pain. Patient reports she can swallow her own secretions. Patient denies fever. Patient denies ear pain. Patient reports she feels like her whole neck is swollen. Patient denies nausea, vomiting or diarrhea. Patient denies sick contacts. Patient denies rash. Patient denies abdominal pain. (ULYSSES SINGLETONECCA) - Related Data Allergies/Adverse Reactions: No Known Allergies Allergy (Verified 10/03/19 16:14) Past Medical History - General Information source: Patient - Social History Smoking Status: Current Every Day Smoker Chew tobacco use (# tins/day): No Frequency of alcohol use: Social Drug Abuse: None Lives with: Family Family History: Reviewed & Not Pertinent Patient has suicidal ideation: No Patient has homicidal ideation: No - Past Medical History Cardiac Medical History: Reports: None Denies: Hx Heart Attack, Hx Hypertension Pulmonary Medical History: Reports: Hx Bronchitis Denies: Hx Asthma, Hx COPD, Hx Pneumonia EENT Medical History: Reports: None Neurological Medical History: Reports: None. Denies: Hx Seizures Endocrine Medical History: Reports: None Renal/ Medical History: Reports: Hx Ectopic . Denies: Hx Peritoneal Dialysis Malignancy Medical History: Reports: None GI Medical History: Reports: None Musculoskeletal Medical History: Reports None, Denies Hx Arthritis Skin Medical History: Reports None Psychiatric Medical History: Reports: None Traumatic Medical History: Reports: None Infectious Medical History: Reports: None Past Surgical History: Reports: Hx Gynecologic Surgery - AB 2006 Pt had ectopic preg and had surgery and both fallopian tubes remov, Hx Hysterectomy, Hx Tubal Ligation - Immunizations Hx Diphtheria, Pertussis, Tetanus Vaccination: No - >5 yrs <DEMETRIUS SINGLETON - Last Filed: 10/03/19 19:47> Review of Systems - Review of Systems Constitutional: See HPI EENT: See HPI Cardiovascular: No symptoms reported Respiratory: No symptoms reported Gastrointestinal: No symptoms reported Genitourinary: No symptoms reported Female Genitourinary: No symptoms reported Musculoskeletal: No symptoms reported Skin: No symptoms reported Hematologic/Lymphatic: No symptoms reported Neurological/Psychological: No symptoms reported <DEMETRIUS SINGLETON - Last Filed: 10/03/19 19:47> Physical Exam - Vital signs Interpretation: Normal <DEMETRIUS SINGLETON - Last Filed: 10/03/19 19:47> - Vital signs Vitals: Temp Pulse Resp BP Pulse Ox 98.0 F 92 16 133/72 H 97 10/03/19 16:09 10/03/19 16:09 10/03/19 16:09 10/03/19 16:09 10/03/19 16:09 - Notes Notes: GENERAL: Well-appearing, well-nourished and in no acute distress. HEAD: Atraumatic, normocephalic. EYES: Pupils equal round and reactive to light, extraocular movements intact, sclera anicteric, conjunctiva are normal. ENT: TMs normal, nares patent, patient has bilateral tonsillar hypertrophy slightly larger on the left. There is no exudate. Uvula is midline. Oropha rynx is erythematous. Moist mucous membranes. NECK: Normal range of motion, supple with palpable submandibular and anterior cervical nodes, no JVD. LUNGS: Breath sounds clear to auscultation bilaterally and equal. No wheezes rales or rhonchi. HEART: Regular rate and rhythm without murmurs, rubs or gallops. ABDOMEN: Soft, round, nontender, normoactive bowel sounds. No guarding, no rebound. No masses appreciated. BACK: No cervical, thoracic, lumbar midline tenderness. No saddle anesthesia, normal distal neurovascular exam. GENITOURINARY: Deferred. EXTREMITIES: Normal range of motion, no pitting or edema. No clubbing or cyanosis. NEUROLOGICAL: Cranial nerves II through XII grossly intact. Normal speech, normal gait. PSYCH: Normal mood, normal affect. SKIN: Warm, Dry, normal turgor, no rashes or lesions noted. (DEMETRIUS SINGLETON) Course - Laboratory Result Diagrams: 10/03/19 16:18 10/03/19 16:18 <DEMETRIUS SINGLETON - Last Filed: 10/03/19 19:47> - Laboratory Result Diagrams: 10/03/19 16:18 10/03/19 16:18 <GAYLE BROWN - Last Filed: 10/03/19 22:32> - Re-evaluation Re-evalutation: 10/03/19 18:24 Patient does have a hot potato voice. We will give the patient a IV fluids, dose of Decadron and Toradol. Will add on a mono test. We will continue to monitor. Airways patent. 10/03/19 19:34 After interventions patient reports feeling slightly better but still has severe pain to the throat. Patient voice is still hoarse. Tonsillar hypertrophy remains present although slightly improved, left tonsil is slightly larger than the right. Will initiate IV antibiotics and CT to rule out peritonsillar abscess. (DEMETRIUS SINGLETON) 10/03/19 22:29 I discussed all results with patient at length. CT does show enlarged adenoids, lymphadenopathy, but there is no discernible abscess or concerning finding. There is mild leukocytosis, mono and strep are negative, previous culture was negative. Because of leukocytosis, continued symptoms, we will place patient on antibiotic and I discussed this. Clindamycin was declined because of GI sy mptoms, she will be given amoxicillin instead. She is tolerating p.o. without difficulty, on my evaluation she does not have an ankle swelling, she has mild to moderate tonsillitis and borderline lymphadenopathy. No drooling or difficulty with swallowing other than some discomfort. Patient is smiling, talkative, well-appearing on my evaluation. Patient is requesting work release. She was provided with this, discussed follow-up and return precautions. Patient states appreciation and agreement, states she is ready to go home. (GAYLE BROWN) - Vital Signs Vital signs: Temp Pulse Resp BP Pulse Ox 98.0 F 92 16 133/72 H 97 10/03/19 16:09 10/03/19 16:09 10/03/19 16:09 10/03/19 16:09 10/03/19 16:09 - Laboratory Laboratory results interpreted by me: 10/03/19 10/03/19 16:18 16:18 WBC 13.5 H Hgb 11.8 L Hct 35.6 L Absolute Neuts (auto) 9.2 H Potassium 3.5 L Chloride 109 H Creatinine 0.50 L 10/03/19 19:34 Patient has a slight leukocytosis of 13.5. No electrolyte derangement Laboratory 10/03/19 10/03/19 10/03/19 16:18 16:18 16:18 WBC 13.5 H RBC 4.13 Hgb 11.8 L Hct 35.6 L MCV 86 MCH 28.4 MCHC 33.0 RDW 13.2 Plt Count 259 Lymph % (Auto) 21.8 [place] % (Auto) 9.4 Eos % (Auto) 0.3 Baso % (Auto) 0.2 Absolute Neuts (auto) 9.2 H Absolute Lymphs (auto) 3.0 Absolute Monos (auto) 1.3 Absolute Eos (auto) 0.0 Absolute Basos (auto) 0.0 Seg Neutrophils % 68.3 Sodium 141.8 Potassium 3.5 L Chloride 109 H Carbon Dioxide 27 Anion Gap 6 BUN 10 Creatinine 0.50 L Est GFR ( Amer) > 60 Est GFR (MDRD) Non-Af > 60 Glucose 100 Calcium 8.9 Total Bilirubin 0.2 Direct Bilirubin 0.2 Neonat Total Bilirubin Not Reportable Neonat Direct Bilirubin Not Reportable Neonat Indirect Bili Not Reportable AST 22 ALT 20 Alkaline Phosphatase 83 Total Protein 7.3 Albumin 3.8 Serum HCG, Qual Monotest Group A Strep Rapid NEGATIVE 10/03/19 10/03/19 16:18 18:33 WBC RBC Hgb Hct MCV MCH MCHC RDW Plt Count Lymph % (Auto) [place] % (Auto) Eos % (Auto) Baso % (Auto) Absolute Neuts (auto) Absolute Lymphs (auto) Absolute Monos (auto) Absolute Eos (auto) Absolute Basos (auto) Seg Neutrophils % Sodium Potassium Chloride Carbon Dioxide Anion Gap BUN Creatinine Est GFR ( Amer) Est GFR (MDRD) Non-Af Glucose Calcium Total Bilirubin Direct Bilirubin Neonat Total Bilirubin Neonat Direct Bilirubin Neonat Indirect Bili AST ALT Alkaline Phosphatase Total Protein Albumin Serum HCG, Qual NEGATIVE Monotest NEGATIVE Group A Strep Rapid (ARELI,DEMETRIUS) Discharge <ARELI,DEMETRIUS - Last Filed: 10/03/19 19:47> <STEPHANIEGAYLE - Last Filed: 10/03/19 22:32> - Discharge Clinical Impression: Tonsillitis, Lymphadenopathy Condition: Stable Disposition: HOME, SELF-CARE Additional Instructions: Your work-up shows tonsillitis and swollen lymph nodes but no other concerning findings, no abscess is seen, your strep and mono tests are negative. We are treating you with an antibiotic for possible secondary infection, take antibiotics as prescribed. Take ibuprofen and Tylenol for pain. Drink plenty of fluids and rest. Return if you worsen including inability to swallow, spiking fevers, difficulty breathing, or any other concerning or worsening symptoms. Prescriptions: Amoxicillin Trihydrate [Amoxil 500 mg Capsule] 500 mg PO BID 10 Days #20 capsule Forms: Return to Work
[2019-10-03] MEDS ORDERED: CLINDAMYCIN 600 MG/D5W RTU 600 MG/50 ML RTUPB IV ONE (19:47)
--- NOTE | 2019-10-03 21:57 | RADIOLOGY REPORT (SQ) ---
EXAM: CT NECK WITH IV CONTRAST CLINICAL INDICATION: 34-year-old female with left-sided swelling and sore throat. Rule out abscess. COMPARISON: None. TECHNIQUE: CT neck soft tissues were performed following intravenous administration of contrast. Multiplanar reformatted images were provided. This exam was performed according to our departmental dose optimization program which includes use of automated exposure control, adjustment of the mA and/or kV according to patient size and/or use of iterative reconstruction technique. FINDINGS: Limited evaluation through the skull base reveals no acute intracranial abnormalities or abnormal post contrast enhancement. The visualized vessels are patent and normal in caliber. Innumerable small lymph nodes are scattered throughout the neck soft tissues bilaterally none of which are pathologically enlarged by CT measurement criteria. The bilateral parotid, bilateral submandibular and thyroid glands are within normal limits. The nasal cavity, posterior nasopharynx, oral cavity, oropharynx, larynx and hypopharynx are within normal limits without abnormal enhancement mass or mass effect. The airways are patent. Nonspecific prominence of the adenoid soft tissue. Limited evaluation of the lung apices are clear. The osseous structures are within normal limits. IMPRESSION: 1. No specific findings are noted to suggest etiology of the patient's neck pain. 2. Nonspecific prominence of the adenoid soft tissue. 3. Innumerable lymph nodes throughout the anterior cervical chain, none of which appear to be pathologically enlarged by CT measurement criteria, however may be reactive in etiology. Please correlate with patient laboratory values.
[2019-10-03] MEDS ORDERED: ONDANSETRON HCL INJ/PF 4 MG/2 ML SDV IV ONE (22:20)
[2019-10-03] MEDS ORDERED: MORPHINE SULFATE 10 MG/ML INJ IV ONE (22:20)
[2019-10-03 23:00] VITALS: BP 145/99
== END 2019-10-03 22:58 | disposition home or self-care (01) ==
LOC: ER 15:19
DX: J03.90 Acute tonsillitis, unspecified (principal); R59.1 Generalized enlarged lymph nodes; F17.200 Nicotine dependence, unspecified, uncomplicated; Z90.710 Acquired absence of both cervix and uterus
CPT/HCPCS: 99283; 96361; 96375; 96365; 36415; 87070; 87880; 84703; 85025; 86308; 80053; 70491; J1885; J2270; J2405; J7030; J1100